=== PATIENT | male | born 1960 | race Caucasian/White ===

== ENCOUNTER → 2016-08-04 | Outpatient (CLI) | payer OTHER ==
[~2016-08-04] MED LIST: ALBUTEROL MININEB NEB; ALBUTEROL17 GM INH; ASPIRIN EC81 M1 PO; LIPITOR PO; LISINOPRIL20 MG PO; LORTAB 5/500 TA1 TA1 PO; SPIRIVA18 MCG INH; SYMBICORT INH
--- NOTE | ~2016-08-04 | EKG ---
PATIENT: TONY MAIN UNIT #: [id number] Ventricular Rate: 78 BPM Atrial Rate: 78 BPM P-R Interval: 140 ms QRS Duration: 74 ms Q-T Interval: 388 ms QTC Calculation(Bezet): 442 ms P [place]: 73 degrees Calculated R [place]: 52 degrees Calculated T [place]: 58 degrees Diagnosis Line: Normal sinus rhythm Diagnosis Line: Normal ECG Diagnosis Line: When compared with ECG of 02-MAR-2014 11:27, Diagnosis Line: No significant change was found Diagnosis Line: Confirmed by JUDY ALVARADO MD ([id number]) on 08/05/2016 Diagnosis Line: 6:10:45 AM INTERPRETING MD: CHRISTIANO NELSON
== END | disposition home or self-care (01) ==
LOC: CLAB 10:16
DX: I10 Essential (primary) hypertension (principal)
CPT/HCPCS: 93005